=== PATIENT | female | born 1985 | race American Indian/Alaskan Native ===

== ENCOUNTER 2019-10-14 12:51 | Emergency (ER) | payer SELFPAY ==
[2019-10-14 12:59] VITALS: BP 153/97
--- NOTE | 2019-10-14 13:13 | Emergency Department Report ---
Blank Doc - Documentation Documentation: 34-year-old female that presents with lower back pains with radiation to neck area. Denies any urinary symptoms. Stated is acute pain and has seen a provider in urgent care and was prescribed muscle relaxers with no relief. This initial assessment/diagnostic orders/clinical plan/treatment(s) is/are subject to change based on patient's health status, clinical progression and re- assessment by fellow clinical providers in the ED. Further treatment and workup at subsequent clinical providers discretion. Patient/guardians urged not to elope from the ED as their condition may be serious if not clinically assessed and managed. Initial orders include: 1- Patient sent to [facility] for further evaluation and treatment
[2019-10-14] MEDS ORDERED: HYDROcodone/ACETAMINOPHEN 5-325 MG TAB PO ONE (14:36)
--- NOTE | 2019-10-14 14:37 | Emergency Department Report ---
ED General Adult HPI - General Chief complaint: Back Pain/Injury Stated complaint: BACK/NECK PAIN Time Seen by Provider: 10/14/19 13:11 Source: patient, family Mode of arrival: Wheelchair Limitations: No Limitations - History of Present Illness Initial comments: Is a 34-year-old female with no prior medical history who presents to ED complaining of back pain for the past 3 days. Patient states that she woke up this morning with excruciating pain to her neck and back. She denies any recent trauma, fall or injuries. Patient states that she had a similar incident about 3 years ago. Patient states the pain is worsened with movement. He denies fev er, chills, nausea vomiting, headache, blurred vision, saddle paresthesia, bowel movement dysfunction or dysuria. Patient states that she went to the [facility] yesterday and was given Flexeril and a Toradol shot which did not relieve symptoms. Patient states she woke up this morning feeling worse. - Related Data Previous Rx's Medication Instructions Recorded Last Taken Type Gabapentin 300 mg PO BID #25 cap 10/14/19 Unknown Rx traMADoL [Ultram 50 MG tab] 50 mg PO Q6HR PRN #15 tablet 10/14/19 Unknown Rx Allergies Allergy/AdvReac Type Severity Reaction Status Date / Time bee pollen Allergy Anaphylaxis Verified 10/14/19 12:55 bee venom protein (honey bee) Allergy Anaphylaxis Verified 10/14/19 12:55 ED Review of Systems ROS: Stated complaint: BACK/NECK PAIN Other details as noted in HPI Comment: All other systems reviewed and negative ED Past Medical Hx - Past Medical History Previous Medical History?: Yes Hx Hypertension: Yes Hx Asthma: Yes Additional medical history: pseudo tumor cerebri, hypothyroidism - Surgical History Past Surgical History?: Yes Additional Surgical History: left jaw - Social History Smoking Status: Current Every Day Smoker Substance Use Type: None - Medications Home Medications: Home Medications Medication Instructions Recorded Confirmed Last Taken Type Gabapentin 300 mg PO BID #25 cap 10/14/19 Unknown Rx traMADoL [Ultram 50 MG tab] 50 mg PO Q6HR PRN #15 tablet 10/14/19 Unknown Rx ED Physical Exam - General Limitations: No Limitations General appearance: alert, in no apparent distress - Head Head exam: Present: atraumatic, normocephalic - Eye Eye exam: Present: normal appearance - ENT ENT exam: Present: mucous membranes moist - Neck Neck exam: Present: normal inspection, tenderness (movement of the neck), full R OM, other (no nuchal rigidity, no spinal tenderness) - Respiratory Respiratory exam: Present: normal lung sounds bilaterally. Absent: respiratory distress - Cardiovascular Cardiovascular Exam: Present: regular rate, normal rhythm. Absent: systolic murmur, diastolic murmur, rubs, gallop - GI/Abdominal GI/Abdominal exam: Present: soft, normal bowel sounds - Extremities Exam Extremities exam: Present: normal inspection, full ROM. Absent: tenderness - Back Exam Back exam: Present: normal inspection, full ROM, muscle spasm, paraspinal tenderness. Absent: CVA tenderness (R), CVA tenderness (L) - Neurological Exam Neurological exam: Present: alert, oriented X3, CN II-XII intact, normal gait, reflexes normal - Psychiatric Psychiatric exam: Present: normal affect, normal mood - Skin Skin exam: Present: warm, dry, intact, normal color. Absent: rash ED Course Vital Signs 10/14/19 12:57 Temperature 98.5 F Pulse Rate 74 Respiratory 18 Rate Blood Pressure 153/97 O2 Sat by Pulse 100 Oximetry ED Medical Decision Making - Lab Data Result diagrams: 10/14/19 14:52 10/14/19 14:52 Laboratory Last Values WBC 4.5 K/mm3 (4.5-11.0) 10/14/19 14:52 RBC 4.45 M/mm3 (3.65-5.03) 10/14/19 14:52 Hgb 8.0 gm/dl (10.1-14.3) L 10/14/19 14:52 Hct 25.7 % (30.3-42.9) L 10/14/19 14:52 MCV 58 fl (79-97) L 10/14/19 14:52 MCH 18 pg (28-32) L 10/14/19 14:52 MCHC 31 % (30-34) 10/14/19 14:52 RDW 19.6 % (13.2-15.2) H 10/14/19 14:52 Plt Count 269 K/mm3 (140-440) 10/14/19 14:52 Lymph % (Auto) 41.6 % (13.4-35.0) H 10/14/19 14:52 Brooks % (Auto) 8.2 % (0.0-7.3) H 10/14/19 14:52 Eos % (Auto) 1.3 % (0.0-4.3) 10/14/19 14:52 Baso % (Auto) 0.4 % (0.0-1.8) 10/14/19 14:52 Lymph # 1.9 K/mm3 (1.2-5.4) 10/14/19 14:52 Brooks # 0.4 K/mm3 (0.0-0.8) 10/14/19 14:52 Eos # 0.1 K/mm3 (0.0-0.4) 10/14/19 14:52 Baso # 0.0 K/mm3 (0.0-0.1) 10/14/19 14:52 Seg Neutrophils % 48.5 % (40.0-70.0) 10/14/19 14:52 Seg Neutrophils # 2.2 K/mm3 (1.8-7.7) 10/14/19 14:52 Sodium 137 mmol/L (137-145) 10/14/19 14:52 Potassium 4.4 mmol/L (3.6-5.0) 10/14/19 14:52 Chloride 102.7 mmol/L (98-107) 10/14/19 14:52 Carbon Dioxide 21 mmol/L (22-30) L 10/14/19 14:52 Anion Gap 18 mmol/L 10/14/19 14:52 BUN 9 mg/dL (7-17) 10/14/19 14:52 Creatinine 0.7 mg/dL (0.7-1.2) 10/14/19 14:52 Estimated GFR > 60 ml/min 10/14/19 14:52 BUN/Creatinine Ratio 13 % 10/14/19 14:52 Glucose 86 mg/dL (65-100) 10/14/19 14:52 Calcium 9.0 mg/dL (8.4-10.2) 10/14/19 14:52 HCG, Quant < 2 mIU/mL (0-4) 10/14/19 14:52 - Radiology Data Radiology results: report reviewed, image reviewed FINDINGS: ALIGNMENT: No significant abnormality. VERTEBRAE: Anterior and mild posterior osteophyte formation are observed at inferior endplate C5 and superior endplate C6. DISC SPACES: Disc height is fairly well-maintained. INDIVIDUAL LEVEL ANALYSIS: C2-3: There is calcification in the expected location of the posterior longitudinal ligament. The possibility of early ossification of the posterior longitudinal ligament should be considered. C3-4: Calcification along the dorsal aspect of the C3 vertebrae may reflect ossification of the posterior longitudinal ligament. No additional abnormality. C4-5: No abnormality. C5-6: Anterior and mild posterior osteophyte formation is noted. Central spinal canal and neuroforamina are adequately maintained. C6-7: No abnormality. C7-T1:No abnormality. CRANIOCERVICAL JUNCTION:No significant abnormality. SPINAL CANAL: Central spinal canal is adequate in size. PARASPINAL SOFT TISSUES: No significant abnormality. LUNG APICES: The lungs are largely excluded on this CT cervical spine. IMPRESSION: 1. 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 2. Degenerative changes with anterior and posterior osteophyte formation at C5- 6. Signer Name: Antwan Cabrera MD Signed: 10/14/2019 4:25 PM Workstation Name: [id number] Transcribed By: Dictated By: Antwan Cabrera MD Electronically Authenticated By: Antwan Cabrera MD Signed Date/Time: 10/14/[address] LUMBAR SPINE WITHOUT CONTRAST INDICATION / CLINICAL INFORMATION: back pain/injury. TECHNIQUE: Axial CT images were obtained through the lumbar spine. Sagittal and coronal reformatted images were produced. All CT scans at this location are performed using CT dose reduction for ALARA by means of automated exposure control. COMPARISON: None available. FINDINGS: TRAUMA:There is no indication of fracture or traumatic subluxation. ALIGNMENT: Normal alignment is maintained throughout. VERTEBRAE: No significant abnormality. DISC SPACES: Disc height is fairly well-maintained throughout the lumbar region. LEVEL BY LEVEL ANALYSIS: L1-2:No abnormality. L2-3:No abnormality. L3-4: Mild broad-based disc bulge. No indication of central canal stenosis or foraminal encroachment. L4-5: A small central disc protrusion flattens the thecal sac slightly. Central spinal canal and neuroforamina are adequately maintained. L5-S1: Broad-based disc bulge contacts the S1 nerve roots without displacing them. There is no associated thecal sac deformity. Central spinal canal and neuroforamina are adequately maintained. SPINAL CANAL: Central spinal canal is adequately maintained throughout. SACRUM:Evaluation of sacrum is limited to the S1 vertebrae. No abnormalities demonstrated. Sacroiliac joints are incompletely evaluated. PARASPINAL SOFT TISSUES: No significant abnormality. IMPRESSION: Mild broad-based disc bulge L3-4 and L5-S1. Small central disc protrusion L4-5. Signer Name: Antwan Cabrera MD Signed: 10/14/2019 4:33 PM Workstation Name: [id number] Transcribed By: Dictated By: Antwan Cabrera MD Electronically Authenticated By: Antwan Cabrera MD Signed Date/Time: 10/14/19 1633 - Medical Decision Making 34-year-old female presents with bulging disc lumbar radiculopathy. Discussed the patient she has a follow-up with a neurologist. CT scan shows this above. Patient received pain medication in the ED. Discussed the patient she'll go home on aperitive child pain medication and needs to follow-up with neurologist. Patient states she understands instructions and will follow up. Patient is ambulatory Loly vital signs are stable. Critical care attestation.: If time is entered above; I have spent that time in minutes in the direct care of this critically ill patient, excluding procedure time. ED Disposition Clinical Impression: Bulging lumbar disc, Lumbar radiculopathy Disposition: - TO HOME OR SELFCARE Is pt being admited?: No Does the pt Need Aspirin: No Condition: Stable Instructions: Lumbar Disc Herniation (ED), Lumbar Radiculopathy (ED) Additional Instructions: Make sure to follow up with the primary care physician as discussed. Take all your medications as you've been prescribed. If you have any worsening symptoms or develop new symptoms please return to ED immediately. Prescriptions: Gabapentin 300 mg PO BID #25 cap traMADoL [Ultram 50 MG tab] 50 mg PO Q6HR PRN #15 tablet PRN Reason: Pain Referrals: PRIMARY CAREMD [Primary Care Provider] - 3-5 Days [facility] [Provider Group] - 3-5 Days RASHARD LIMON MD [Staff Physician] - 3-5 Days Forms: Work/School Release Form Time of Disposition: 16:53
[2019-10-14 15:06] LABS: Basophils % (Auto) 0.4 % (0.0-1.8); Eosinophils # (Auto) 0.1 K/mm3 (0.0-0.4); Eosinophils % (Auto) 1.3 % (0.0-4.3); Hematocrit 25.7 % (30.3-42.9); Lymphocytes # (Auto) 1.9 K/mm3 (1.2-5.4); Lymphocytes % (Auto) 41.6 % (13.4-35.0); Mean Corpuscular HGB Conc 31 % (30-34); Monocytes # (Auto) 0.4 K/mm3 (0.0-0.8); Monocytes % (Auto) 8.2 % (0.0-7.3); Platelet Count 269 K/mm3 (140-440); Red Blood Count 4.45 M/mm3 (3.65-5.03); Red Cell Distribution Width 19.6 % (13.2-15.2)
[2019-10-14 15:16] LABS: BUN/Creatinine Ratio 13; Blood Urea Nitrogen 9 mg/dL (7-17); Hemolysis Index 1
[2019-10-14 15:17] LABS: Mean Corpuscular Volume 58 fl (79-97)
--- NOTE | 2019-10-14 16:30 | Cat Scan Report ---
CT CERVICAL SPINE WITHOUT CONTRAST INDICATION / CLINICAL INFORMATION: pain/stiffness. TECHNIQUE: Axial CT images were obtained through the cervical spine. Sagittal and coronal reformatted images wer e produced. All CT scans at this location are performed using CT dose reduction for ALARA by means of automated exposure control. COMPARISON: None available. FINDINGS: ALIGNMENT: No significant abnormality. VERTEBRAE: Anterior and mild posterior osteophyte formation are observed at inferior endplate C5 and superior endplate C6. DISC SPACES: Disc height is fairly well-maintained. INDIVIDUAL LEVEL ANALYSIS: C2-3: There is calcification in the expected location of the posterior longitudinal ligament. The pos sibility of early ossification of the posterior longitudinal ligament should be considered. C3-4: Calcification along the dorsal aspect of the C3 vertebrae may reflect ossification of the poste rior longitudinal ligament. No additional abnormality. C4-5: No abnormality. C5-6: Anterior and mild posterior osteophyte formation is noted. Central spinal canal and neuroforami na are adequately maintained. C6-7: No abnormality. C7-T1:No abnormality. CRANIOCERVICAL JUNCTION:No significant abnormality. SPINAL CANAL: Central spinal canal is adequate in size. PARASPINAL SOFT TISSUES: No significant abnormality. LUNG APICES: The lungs are largely excluded on this CT cervical spine. IMPRESSION: 1. 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 2. Degenerative changes with anterior and posterior osteophyte formation at C5-6. Signer Name: Antwan Cabrera MD Signed: 10/14/2019 4:25 PM Workstation Name: [id number]
--- NOTE | 2019-10-14 16:34 | Cat Scan Report ---
CT THORACIC SPINE WITHOUT CONTRAST INDICATION / CLINICAL INFORMATION: pain/stiffness. TECHNIQUE: Axial CT images were obtained through the thoracic spine. Sagittal and coronal reformatted images wer e produced. All CT scans at this location are performed using CT dose reduction for ALARA by means of automated exposure control. COMPARISON: None available. FINDINGS: VERTEBRAE: Small anterior osteophytes are observed at several levels. ALIGNMENT: Normal alignment is maintained throughout the thoracic region. DISC SPACES: Disc height is fairly well-maintained throughout. FACET and COSTOVERTEBRAL JOINTS: No significant arthritic changes are identified. There is no indicat ion of foraminal encroachment. CERVICOTHORACIC JUNCTION:No significant abnormality. SPINAL CANAL: Central spinal canal is adequately maintained throughout the thoracic region. Note: CT thoracic spine is relatively insensitive in the detection of thoracic disc herniation compar ed to MRI and CT thoracic spine with myelographic contrast. PARASPINAL SOFT TISSUES: No significant abnormality. Superior mediastinum and paraspinous soft tissue s have an unremarkable appearance. ADDITIONAL FINDINGS: None. LUNGS: Visualized portions the lung are free from confluent infiltrate. No lung nodules are identifie d. There is no indication of pleural effusion. IMPRESSION: 1. No indication of significant degenerative change, central canal stenosis or neuroforaminal narrowi ng. Signer Name: Antwan Cabrera MD Signed: 10/14/2019 4:29 PM Workstation Name: [id number]
--- NOTE | 2019-10-14 16:38 | Cat Scan Report ---
CT LUMBAR SPINE WITHOUT CONTRAST INDICATION / CLINICAL INFORMATION: back pain/injury. TECHNIQUE: Axial CT images were obtained through the lumbar spine. Sagittal and coronal reformatted images were produced. All CT scans at this location are performed using CT dose reduction for ALARA by means of a utomated exposure control. COMPARISON: None available. FINDINGS: TRAUMA:There is no indication of fracture or traumatic subluxation. ALIGNMENT: Normal alignment is maintained throughout. VERTEBRAE: No significant abnormality. DISC SPACES: Disc height is fairly well-maintained throughout the lumbar region. LEVEL BY LEVEL ANALYSIS: L1-2:No abnormality. L2-3:No abnormality. L3-4: Mild broad-based disc bulge. No indication of central canal stenosis or foraminal encroachment. L4-5: A small central disc protrusion flattens the thecal sac slightly. Central spinal canal and neur oforamina are adequately maintained. L5-S1: Broad-based disc bulge contacts the S1 nerve roots without displacing them. There is no associ ated thecal sac deformity. Central spinal canal and neuroforamina are adequately maintained. SPINAL CANAL: Central spinal canal is adequately maintained throughout. SACRUM:Evaluation of sacrum is limited to the S1 vertebrae. No abnormalities demonstrated. Sacroiliac joints are incompletely evaluated. PARASPINAL SOFT TISSUES: No significant abnormality. IMPRESSION: Mild broad-based disc bulge L3-4 and L5-S1. Small central disc protrusion L4-5. Signer Name: Antwan Cabrera MD Signed: 10/14/2019 4:33 PM Workstation Name: [id number]
== END 2019-10-14 17:28 | disposition home or self-care (01) ==
LOC: ED 12:51
DX: M51.26 Other intervertebral disc displacement, lumbar region (principal); M54.16 Radiculopathy, lumbar region; I10 Essential (primary) hypertension; J45.909 Unspecified asthma, uncomplicated; F17.200 Nicotine dependence, unspecified, uncomplicated; Z91.048 Other nonmedicinal substance allergy status; Z91.030 Bee allergy status
CPT/HCPCS: 36415; 72125; 72128; 72131; 80048; 84702; 85025

== ENCOUNTER 2019-12-21 11:19 | Emergency (ER) | payer SELFPAY ==
--- NOTE | 2019-12-21 11:33 | Emergency Department Report ---
Chief Complaint: Back Pain/Injury Stated Complaint: BACK/LEG PAIN/WEAK Time Seen by Provider: 12/21/19 11:28 MSE screening note: Focused history and physical exam performed. Due to findings the following was ordered: ED Medical Decision Making - Medical Decision Making CC: I have a slipped disc HPI: Guerline is a very pleasant 34-year-old female with history of sciatica. She has lower back pain rating to the right leg. 2 days ago diagnosed outside [facility] with sciatica. No bowel or bladder incontinence. No leg weakness. She was prescribed naproxen and muscle relaxer. She denies fill these prescriptions. Brief physical exam: Ambulatory no difficulty. Transfers position with ease. Medical decision making: Without red flags of back pain no red flags exist such as trauma, weight loss, neurologic symptoms, advanced age, fever, IV drug use, hx of cancer or steroid use. I have encouraged her to follow-up with outpatient physician. I have encouraged her to fill the prescriptions provided on her previous ED encounter. She explained that she received tramadol on her last ED encounter here. I explained that if she needs this medication on a long-term basis, she will need to establish care with a primary physician. Medical screening exam performed and completed. No evidence of acute emergent condition. Patient appears to have chronic back pain due to lumbar degenerative disc disease. ED Disposition for MSE Clinical Impression: Encounter for medical screening examination Disposition: MED SCREENING EXAM-LEFT Condition: Stable Referrals: NICOLLE RICO MD [Staff Physician] - 3-5 Days Forms: Work/School Release Form(ED)
== END 2019-12-21 12:04 | disposition left against medical advice (07) ==
LOC: ED 11:19
DX: M54.5 Low back pain (principal)
CPT/HCPCS: 99281